=== PATIENT | female | born 1945 | race Caucasian/White ===

== ENCOUNTER 2023-02-22 06:55 | Day surgery (SDC) | payer MEDICARE, OTHER ==
[2023-02-21 15:44] VITALS: BMI 22.9
[2023-02-22] MEDS ORDERED: Bupivacaine PF 0.5% 30 ML VIAL ONE (08:26)
[2023-02-22] MEDS ORDERED: fentaNYL 50 mcg/mL 1 mL Vial ONE (08:26)
[2023-02-22] MEDS ORDERED: Sodium Chloride 0.9% 100 ML ONE (09:01)
[2023-02-22] MEDS ORDERED: CEFAZOLIN 2 GM VIAL ONE (09:01)
[2023-02-22] MEDS ORDERED: fentaNYL PF 100 MCG/2 ML SYRINGE ONE (09:07)
[2023-02-22] MEDS ORDERED: Ondansetron PF 4 MG/2 ML Vial ONE (09:31)
[2023-02-22] MEDS ORDERED: Lidocaine 1% PF 5 ML VIAL ONE (09:31)
[2023-02-22] MEDS ORDERED: Bupivacaine HCl 0.5%/Epinephrine 1:200,000/PF 30 ml Vial ONE (09:31)
[2023-02-22] MEDS ORDERED: PROPOFOL 200 MG/20 ML VIAL ONE (09:31)
[2023-02-22] MEDS ORDERED: PHENYLEPHRINE-NS 100 MCG/ML 10 ML SYRINGE ONE (09:31)
== END 2023-02-22 12:05 | disposition home or self-care (01) ==
LOC: SDC 06:55
PROVIDERS: ATTEND Orthopaedic Surgery
PROC: 0PSJ04Z Reposition Left Radius with Internal Fixation Device, Open Approach (ICD-10-PCS; principal; 2023-02-22)
DX: S52.502A Unspecified fracture of the lower end of left radius, initial encounter for closed fracture (principal); S42.202A Unspecified fracture of upper end of left humerus, initial encounter for closed fracture; E78.00 Pure hypercholesterolemia, unspecified; E11.9 Type 2 diabetes mellitus without complications; I10 Essential (primary) hypertension; Z86.73 Personal history of transient ischemic attack (TIA), and cerebral infarction without residual deficits; Z79.899 Other long term (current) drug therapy; W01.0XXA Fall on same level from slipping, tripping and stumbling without subsequent striking against object, initial encounter
CPT/HCPCS: 25608; 73100; 93005; C1713 ×5; J3010; 93010; J2405; J2704; J3490; S0020